=== PATIENT | female | born 2005 | race Caucasian/White ===

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

== ENCOUNTER → 2023-09-04 11:19 | Outpatient (CLI) | payer OTHER, SELFPAY ==
[2023-09-04 12:25] LABS: Hematocrit 40.5 % (36-46); Hemoglobin 13.9 g/dL (12.0-16.0)
== END ==
PROVIDERS: PCP Registered Nurse Diabetes Educator; Referring Provider Family Medicine; Visit Provider Family Medicine
DX: Z00.00 Encounter for general adult medical examination without abnormal findings (principal)
CPT/HCPCS: 36415; 85014; 85018